=== PATIENT | male | born 1985 | race Two or more races ===

== ENCOUNTER 2022-01-23 08:17 | Emergency (ER) | payer OTHER ==
[~2022-01-23] VITALS: Ht 180.3 cm; Wt 77.1 kg
--- NOTE | 2022-01-23 08:17 | NUR ---
PT BIB SELF C/O FEVER, CHILLS AND SORE THROAT AND NASAL CONGESTION X 24 HRS. PT IS AAOX4, NOT IN RESPIRATORY DISTRESS, V/S STABLE, KEPT RESTED AND COMFORTABLE. WILL CONTINUE TO MONITOR.
--- NOTE | 2022-01-23 09:25 | NUR ---
AT BEDSIDE FOR EVAL.
[2022-01-23] MEDS ORDERED: KETOROLAC TROMETHAMINE 15 MG/ML VIAL ONE (09:50)
[2022-01-23] MEDS ORDERED: IV NS 0.9% 1,000 ML IV ONE (10:00)
[2022-01-23] MEDS ORDERED: KETOROLAC TROMETHAMINE INJ 30 MG/ML VIAL IV ONE (10:00)
[2022-01-23] MEDS ORDERED: IBUP-1955 PO (10:09)
[2022-01-23 10:33] VITALS: BP 131/84
--- NOTE | 2022-01-23 10:33 | NUR ---
IV removed. Catheter intact and site benign. Pressure and 4x4 applied to site. No bleeding noted. Patient discharged to home in stable condition. Written and verbal after care instructions given. Patient verbalizes understanding of instruction.
== END 2022-01-23 10:34 | disposition home or self-care (01) ==
LOC: ER 08:30
DX: J06.9 Acute upper respiratory infection, unspecified (principal); Z90.89 Acquired absence of other organs; Z88.0 Allergy status to penicillin
CPT/HCPCS: 96361; 96374; 99283; J1885; J7030